=== PATIENT | male | born 1950 | race Caucasian/White ===

== ENCOUNTER 2016-11-14 22:51 | Emergency (ER) | payer OTHER ==
[~2016-11-14] VITALS: Ht 167.6 cm; Wt 68.0 kg
[~2016-11-14 22:51] MED LIST: ADVAIR DISKUS 21 DSK INH; ALBUTEROL SULFAT3 M1 INH; ALL 100 SUPER B1 TAB PO; LISINOPRIL20 MG PO; MAGNESIUM OXID400 MG PO; MULTIVITAMIN1 TAB PO; VITAMIN C500 M3 PO; ZINC1 GRA PO
--- NOTE | 2016-11-14 23:32 | ED GENERAL ADULT ---
History of Present Illness General Chief Complaint: General Adult Stated Complaint: HIGH BP@HOME 194/104 /BUTCHER Source: patient, family Exam Limitations: no limitations Vital Signs & Intake/Output Vital Signs & Intake/Output Vital Signs Date Time Temp Pulse Resp B/P Pulse O2 O2 Flow FiO2 Ox Delivery Rate 11/15 0058 65 18 158/88 96 Room Air 11/15 0021 96 Room Air 11/15 0021 97.1 64 18 170/90 96 Room Air 11/15 0020 97.1 64 18 170/90 11/14 2339 170/90 ED Intake and Output 11/15 0000 11/14 1200 Intake Total Output Total Balance Patient 150 lb Weight Allergies Coded Allergies: sulfamethoxazole (From Bactrim) (Severe, ANAPHYLAXIS 11/15/16) trimethoprim (From Bactrim) (Severe, ANAPHYLAXIS 11/15/16) clarithromycin (Severe, PALPITATIONS 11/15/16) Uncoded Allergies: PET HAIR/DANDER (TRIGGERS ASTHMA 08/07/14) SEASONAL ALLERGIES (TRIGGER ASTHMA 08/07/14) Reconcile Medications Albuterol Sulfate 3 ML NEB 3 ML INH PRN ASTHMA (Reported) Amlodipine (Norvasc) 2.5 MG TABLET 5 MG PO DAILY BP (Reported) Ascorbic Acid (Vitamin C) 500 MG TAB 1 TAB PO DAILY SUPPLEMENT (Reported) Doxycycline Hyclate 50 MG CAPSULE 1 CAP PO DAILY ROSATEA (Reported) FLUTICASONE/SALMETEROL (Advair 250-50 Diskus) 250 MCG-50 MCG/DOSE BLST.W.DEV 1 PUFF INH BID ASTHMA (Reported) Lisinopril 20 MG TABLET 1 TAB PO DAILY BP (Reported) Magnesium Oxide (Unknown Strength) TABLET (Unknown Dose) PO DAILY SUPPLEMENT (Reported) Multivitamin (Multiple Vitamins) 1 EACH TABLET 1 TAB PO DAILY SUPPLEMENT ( Reported) Vitamin B Complex (All 100 Super B Complex) (Unknown Strength) TAB (Unknown Dose) PO DAILY SUPPLEMENT (Reported) Zinc (Unknown Strength) GRA (Unknown Dose) PO DAILY SUPPLEMENT (Reported) Triage Note: PT TO ED C/O HIGH BP AT HOME. PMH OF HTN, TAKES 10 MG LISINORIP DAILY. TAKES 5 MG AMLODIPINE AND 0.25 WHEN BP IS ELEVATED, "USUALLY WORKS" TOOK AMLODIPINE AND XANANX AT 21 AND BP WENT EVEN HIGHER TO 195/105. IS CURRENTLY ON DOXY FOR RASH ON FACE, TOOK 50 MG AT 2200. DENIES CHEST PAIN, DENIES SOB. STATES IS VERY ANXIOUS. BP IN TRIAGE 194/88 Triage Nurses Notes Reviewed? yes Onset: Abrupt Duration: hour(s): (few) Timing: single episode today Injury Environment: home Severity: moderate No Modifying Factors: none Associated Symptoms: NECK PAIN, ANXIETY HPI: This is a 60 year old male with history of hypertension and anxiety presents to the ER for chief complaint of elevated blood pressure at home. Patient did his usual dose with inability 10:00 this morning. He states he was with his granddaughter Shamar Su had a very good day today. This evening while watching TV at home he started to feel an ache behind his neck and checked his blood pressure and it was 180/100. He states he took his dose of amlodipine which his doctor gave him to take in case his blood pressure was high as well as his alprazolam and rechecked in our and admitted actually gone up to 190/105.. Denies any chest pain, headache, blurry vision or shortness of breath. Denies any abdominal pain or back pain. He states that his encouraged him to come to the ER for evaluation. Past History Travel History Traveled to [place] past 21 day No Medical History Any Pertinent Medical History? see below for history Cardiovascular: hypertension Respiratory: asthma Surgical History Surgical History: non-contributory Psychosocial History What is your primary language Hebrew Tobacco Use: Never used Family History Hx Contributory? No Review of Systems Review of Systems Constitutional: Denies: chills, fever. EENTM: Reports: no symptoms. Respiratory: Denies: cough, short of breath. Cardiovascular: Denies: chest pain, palpitations, peripheral edema. GI: Denies: abdominal pain. Genitourinary: Reports: no symptoms. Musculoskeletal: Reports: muscle pain, muscle stiffness, neck pain. Skin: Reports: no symptoms. Neurological/Psychological: Reports: no symptoms. Hematologic/Endocrine: Denies: bruising, bleeding, polyuria, polydipsia. Immunologic/Allergic: Denies: splenectomy. All Other Systems: Reviewed and Negative Physical Exam Physical Exam General Appearance: well developed/nourished, alert, awake, anxious, mild distress Head: atraumatic, normal appearance Eyes: Bilateral: normal appearance, PERRL, EOMI. Ears, Nose, Throat: normal pharynx, normal ENT inspection, hearing grossly normal Neck: normal inspection, supple, full range of motion, NO MENINGISMUS, NO CAROTID BRUIT Respiratory: normal breath sounds, chest non-tender, no respiratory distress Cardiovascular: regular rate/rhythm Peripheral Pulses: 2+ radial (R), 2+ radial (L) Gastrointestinal: normal bowel sounds, soft, non-tender Extremities: normal inspection, normal range of motion, no edema Neurologic/Psych: no motor/sensory deficits, awake, alert, oriented x 3 Skin: intact, normal color, warm/dry Core Measures ACS in differential dx? No CVA/TIA Diagnosis: No Severe Sepsis Present: No Septic Shock Present: No Progress Differential Diagnoses I considered the following diagnoses in my evaluation of the patient: [ Accelerated hypertension, anxiety] Plan of Care: Orders Procedure Date/time Status EKG 11/14 2331 Active ekg nsr, no acute changes. manual bp 170/90. 2:59 AM BP is 158/88. Patient without chest pain shortness of breath headache or blurred vision. He will follow-up with his primary care doctor in the office. (NOA HOANG,DANIEL) Initial ED EKG: NSR Prior EKG: unchanged Rhythm Strip: normal sinus rhythm Departure Departure Time of Disposition: 57 Disposition: HOME OR SELF CARE Condition: Stable Clinical Impression Primary Impression: Hypertension Referrals: RYAN VILLAFANA DO Additional Instructions: Take your blood pressure medications as instructed. Please monitor at home and follow-up with your primary care doctor in the office. Return to the ER for any changing or worsening symptoms. Departure Forms: Customer Survey General Discharge Information Critical Care Note Critical Care Note Critical Care Time: non-applicable
[2016-11-14] MEDS ORDERED: DOXYCYCLINE HYC50 M1 PO (23:45)
[2016-11-14] MEDS ORDERED: NORVASC2.5 M1 PO (23:45)
[2016-11-15 00:58] VITALS: BP 158/88
== END 2016-11-15 01:07 ==
LOC: ERH 22:51
DX: I10 Essential (primary) hypertension (principal)
CPT/HCPCS: 93005; 93010